=== PATIENT | female | born 1985 | race Caucasian/White ===

== ENCOUNTER 2017-09-01 23:48 | Inpatient (IN) | payer BC ==
[2017-09-02] MEDS ORDERED: Ondansetron 4 MG/2 ML SDV IVPUSH PRN (00:26)
[2017-09-02] MEDS ORDERED: Lidocaine 1% 50 ML MDV INJECT ONE (00:26)
[2017-09-02] MEDS ORDERED: Nalbuphine 20 MG/1 ML Amp IVPUSH PRN (00:26)
[2017-09-02] MEDS ORDERED: Sodium Chloride 0.9% 10 ML Syringe FLUSH PRN (00:26)
[2017-09-02] MEDS ORDERED: Oxytocin/Lactated Ringers 10 UNIT/1,000 ML BAG IV SCH (00:30)
[2017-09-02] MEDS: Lactated Ringers 1,000 ML IV SCH ×4 (02:00→04:34)
[2017-09-02] MEDS ORDERED: fentaNYL 100 MCG/2 ML SDV ONE (02:08)
--- NOTE | 2017-09-02 02:32 | PCM.PREANE ---
Preanesthetic Assessment - Anesthesia/Transfusion/Family Hx Anesthesia History: Prior Anesthesia Without Reaction Family History of Anesthesia Reaction: No Transfusion History: No Prior Transfusion(s) - Review of Systems General: No Symptoms Pulmonary: No Symptoms Cardiovascular: No Symptoms Gastrointestinal: No Symptoms Neurological: No Symptoms Other: Reports: None - Physical Assessment Pulse: 104 O2 Sat by Pulse Oximetry: 100 Respiratory Rate: 20 Blood Pressure: 111/47 Height: 5 ft 8 in Weight: 94.347 kg ASA Class: 2 Mental Status: Alert & Oriented x3 Airway Class: Mallampati = 1 Dentition: Reports: Normal Dentition Thyro-Mental Finger Breadths: 3 Mouth Opening Finger Breadths: 3 ROM/Head Extension: Full Lungs: Clear to Auscultation, Normal Respiratory Effort Cardiovascular: Regular Rate, Regular Rhythm - Lab Values: Laboratory Last Values WBC 10.92 K/mm3 (3.98-10.04) H 09/02/17 00:35 RBC 3.97 M/mm3 (3.98-5.22) L 09/02/17 00:35 Hgb 12.0 gm/L (11.2-15.7) 09/02/17 00:35 Hct 35.1 % (34.1-44.9) 09/02/17 00:35 MCV 88.4 fl (79.4-94.8) 09/02/17 00:35 MCH 30.2 pg (25.6-32.2) 09/02/17 00:35 MCHC 34.2 g/dl (32.2-35.5) 09/02/17 00:35 RDW Std Deviation 39.3 fL (36.4-46.3) 09/02/17 00:35 Plt Count 291 K/mm3 (182-369) 09/02/17 00:35 MPV 9.6 fl (9.4-12.3) 18 00:35 Blood Type O POSITIVE 09/02/17 00:35 Gel Antibody Screen Negative 09/02/17 00:35 - Allergies Allergies/Adverse Reactions: Allergies Allergy/AdvReac Type Severity Reaction Status Date / Time amoxicillin Allergy Other Unverified 09/02/17 00:37 azithromycin [From Zithromax] Allergy Other Unverified 09/02/17 00:37 Sulfa (Sulfonamide Allergy Rash Unverified 09/02/17 00:37 Antibiotics) - Blood Blood Available: No - Acknowledgements Anesthesia Type Planned: Epidural Pt an Appropriate Candidate for the Planned Anesthesia: Yes Alternatives and Risks of Anesthesia Discussed w Pt/Guardian: Yes Pt/Guardian Understands and Agrees with Anesthesia Plan: Yes PreAnesthesia Questionnaire Cardiovascular History: Reports: Other (See Below) (murmur) Respiratory History: Reports: None Gastrointestinal History: Reports: None : 1 (39 weeks) Para: 0 - Past Surgical History HEENT Surgical History: Reports: Oral Surgery - History Comment History Comment: cholestryramine oral suspension qid - SUBSTANCE USE Smoking Status *Q: Never Smoker Tobacco Use Within Last Twelve Months: No Second Hand Smoke Exposure: No Days Per Week of Alcohol Use: 0 Number of Drinks Per Day: 0 Total Drinks Per Week: 0 Recreational Drug Use History: No - CURRENT (IN HOUSE) MEDS Current Meds: Current Medications Lactated Ringer's (Ringers, Lactated) 1,000 mls @ 100 mls/hr IV ASDIRECTED BECKY Oxytocin/Lactated Ringer's (Pitocin In Lr 10 Units/1,000 Ml) 10 unit in 1,000 mls @ 500 mls/hr IV .CONTINUOUS BECKY Nalbuphine HCl (Nubain) 10 mg IVPUSH Q2H PRN PRN Reason: Pain (moderate 4-6) Ondansetron HCl (Zofran) 4 mg IVPUSH Q4H PRN PRN Reason: Nausea/Vomiting Last Admin: 09/02/17 01:28 Dose: 4 mg Sodium Chloride (Saline Flush) 10 ml FLUSH ASDIRECTED PRN PRN Reason: Keep Vein Open Discontinued Medications Fentanyl (Sublimaze) Confirm Administered Dose 100 mcg .ROUTE .STK-MED ONE Stop: 09/02/17 02:09 Last Admin: 09/02/17 02:25 Dose: 100 mcg Lidocaine HCl (Xylocaine 1%) 20 ml INJECT ONETIME ONE Stop: 09/02/17 00:27
[2017-09-02] MEDS ORDERED: fentaNYL 100 MCG/2 ML SDV EPIDUR PRN (04:58)
[2017-09-02] MEDS ORDERED: diphenhydrAMINE 50 MG/ML SDV IVPUSH PRN (04:58)
[2017-09-02] MEDS ORDERED: ePHEDrine 50 MG/ML SDV IVPUSH PRN (04:58)
[2017-09-02] MEDS ORDERED: Bupivacaine/fentaNYL/NS 100 ML Bag EPIDUR SCH (05:00)
--- NOTE | 2017-09-02 08:14 | PCM.LDHP ---
L&D History of Present Illness - General Date of Service: 09/02/17 Admit Problem/Dx: Patient Status Order with Admit Dx/Problem 09/02/17 00:26 Patient Status [ADT] Routine Admission Diagnosis/Problem Admission Diagnosis/Problem Normal labor Source of Information: Patient History Limitations: Reports: No Limitations - History of Present Illness Introduction:: 31 y/o JEN 09/08/2017 EGA 39w1d. GBS negative. Presented to L&D tipple repairer hours of 09/02/17 at approximately 00 20 hours complaining of ruptured membranes at 2300 hrs. on 09/01/17. Patient admitted for labor and delivery blood type O-positive antibody screen negative initial hemoglobin and hematocrit 02/24/1712.8/36.9 platelets 298,000. Rubella immune serology nonreactive urine culture lactobacillus contaminants vaginal doug hepatitis B surface antigen negative HIV negative GC, a probe negative hemoglobin hematocrit on 06/16/1711.8/35.2 platelets 265,000 sugar 1 hour OB glucose screen 90 Pain Score: 10 Improves with: Reports: None Worsens with: Reports: None Associated Symptoms: Reports: N - Related Data Allergies/Adverse Reactions: Allergies Allergy/AdvReac Type Severity Reaction Status Date / Time amoxicillin Allergy Other Verified 09/02/17 05:04 azithromycin [From Zithromax] Allergy Other Verified 09/02/17 05:04 Sulfa (Sulfonamide Allergy Rash Verified 09/02/17 05:04 Antibiotics) Home Medications: Home Meds Cholestyramine/Sucrose [Cholestyramine Packet] 4 gm PO Q6HR 09/02/17 [History] Past Medical History Cardiovascular History: Reports: Heart Murmur Respiratory History: Reports: None Gastrointestinal History: Reports: None [employer] History: Reports: Hematologic History: Reports: Anemia - Past Surgical History HEENT Surgical History: Reports: Oral Surgery - History Comment History Comment: cholestryramine oral suspension qid Social & Family History - Family History Family Medical History: Noncontributory - Tobacco Use Smoking Status *Q: Never Smoker Second Hand Smoke Exposure: No - Caffeine Use Caffeine Use: Reports: None - Alcohol Use Days Per Week of Alcohol Use: 0 Number of Drinks Per Day: 0 Total Drinks Per Week: 0 - Recreational Drug Use Recreational Drug Use: No H&P Review of Systems - Review of Systems: Review Of Systems: See Below General: Reports: No Symptoms HEENT: Reports: No Symptoms Pulmonary: Reports: No Symptoms Cardiovascular: Reports: No Symptoms Gastrointestinal: Reports: No Symptoms Genitourinary: Reports: No Symptoms Musculoskeletal: Reports: No Symptoms Skin: Reports: No Symptoms Psychiatric: Reports: No Symptoms Neurological: Reports: No Symptoms Hematologic/Lymphatic: Reports: No Symptoms Immunologic: Reports: No Symptoms L&D Exam - Exam Exam: See Below - Vital Signs Vital Signs: Last Vital Signs Temp 97.2 F 09/02/17 05:10 Pulse 115 H 09/02/17 06:00 Resp 18 09/02/17 05:10 BP 120/69 09/02/17 06:00 Pulse Ox 98 09/02/17 05:10 Weight: 208 lb 1.6 oz - OB Specific Fundal Height In cm: 39 Contraction Duration (sec): 60 Contraction Frequency (min): 3-4 Contraction Intensity: Moderate Movement: Active Heart Tones: Present Heart Tones per Min: 145 Heart Rate (FHR) Variability: Moderate (6-25 bmp) Presentation: Vertex - Avila Score Avila Score Cervix Position: Posterior Avila Score Consistency: Soft Avila Score Effacement: >80% Avila Score Dilation: 3-4 cm Avila Score 's Station: -2 Avila Score Total: 8 - Exam General: Alert, Oriented HEENT: Conjunctiva Clear, Mucosa Moist & Priddy, Posterior Pharynx Clear, TMs Clear, PERRLA Neck: Supple, Trachea Midline Lungs: Clear to Auscultation, Normal Respiratory Effort Cardiovascular: Regular Rate, Regular Rhythm GI/Abdominal Exam: Normal Bowel Sounds, Soft, Non-Tender Genitourinary: Normal external exam, Normal bimanual exam, Normal speculum exam Back Exam: Normal Inspection, Full Range of Motion Extremities: Normal Inspection, Normal Range of Motion, Non-Tender, No Pedal Edema, Normal Capillary Refill Skin: Warm, Dry, Intact Psychiatric: Alert, Normal Affect, Normal Mood - Patient Data Lab Results Last 24 hrs: Laboratory Results - last 24 hr 09/02/17 09/02/17 Range/Units 00:35 00:35 WBC 10.92 H (3.98-10.04) K/mm3 RBC 3.97 L (3.98-5.22) M/mm3 Hgb 12.0 (11.2-15.7) gm/L Hct 35.1 (34.1-44.9) % MCV 88.4 (79.4-94.8) fl MCH 30.2 (25.6-32.2) pg MCHC 34.2 (32.2-35.5) g/dl RDW Std Deviation 39.3 (36.4-46.3) fL Plt Count 291 (182-369) K/mm3 MPV 9.6 (9.4-12.3) fl Blood Type O POSITIVE Gel Antibody Screen Negative Result Diagrams: 09/02/17 00:35 - Problem List (1) 39 weeks gestation of SNOMED Code(s): 98600413 ICD Code: Z3A.39 - 39 WEEKS GESTATION OF Status: Acute Current Visit: Yes Problem List Initiated/Reviewed/Updated: No Orders Last 24hrs: Active Orders 24 hr Category Date Time Status Patient Status [ADT] Routine ADT 09/02/17 00:26 Active Activity as Tolerated [RC] PFP Care 09/02/17 00:26 Active Communication Order [RC] ASDIRECTED Care 09/02/17 00:26 Active [place]ney Catheter Insertion [Insert Urinary Catheter] [OM. Care 09/02/17 05:15 Ordered PC] Q24H Notify Provider [RC] ASDIRECTED Care 09/02/17 04:58 Active Notify Provider [RC] PFP Care 09/02/17 00:26 Active Notify Provider [RC] PRN Care 09/02/17 00:26 Active Peripheral IV Care [RC] Q2HR Care 09/02/17 00:26 Active Vital Signs [RC] 04,12,20 Care 09/02/17 00:26 Active Regular Diet [DIET] Diet 09/02/17 Breakfast Active Bupivacaine/fentaNYL/NS [fentaNYL/Bupivacaine/NS 2 MCG- Med 09/02/17 05:00 Active 0.125% 100 ML] 100 ml EPIDUR ASDIRECTED Lactated Ringers [Ringers, Lactated] 1,000 ml Med 09/02/17 00:30 Active IV ASDIRECTED Nalbuphine [Nubain] Med 09/02/17 00:26 Active 10 mg IVPUSH Q2H PRN Ondansetron [Zofran] Med 09/02/17 00:26 Active 4 mg IVPUSH Q4H PRN Oxytocin/Lactated Ringers [Pitocin in LR 10 Units/1,000 Med 09/02/17 00:30 Active ML] 10 unit in 1,000 ml IV .CONTINUOUS Sodium Chloride 0.9% [Saline Flush] Med 09/02/17 00:26 Active 10 ml FLUSH ASDIRECTED PRN diphenhydrAMINE [Benadryl] Med 09/02/17 04:58 Active 25 mg IVPUSH Q6H PRN ePHEDrine [ePHEDrine Sulfate] Med 09/02/17 04:58 Active 5 mg IVPUSH ASDIRECTED PRN fentaNYL [Sublimaze] Med 09/02/17 04:58 Active 100 mcg EPIDUR Q3H PRN Electronic Heart Tones Ext w TOCO [WOMSER] Oth 09/02/17 00:26 Ordered Routine Electronic Heart Tones Internal [WOMSER] Per Unit Oth 09/02/17 00:26 Ordered Routine Peripheral IV Insertion Adult [OM.PC] Routine Oth 09/02/17 00:26 Ordered Resuscitation Status Routine Resus Stat 09/02/17 00:26 Ordered Medication Orders Diphenhydramine HCl (Benadryl) 25 mg IVPUSH Q6H PRN PRN Reason: pruritis Ephedrine Sulfate (Ephedrine Sulfate) 5 mg IVPUSH ASDIRECTED PRN PRN Reason: Hypotension Fentanyl (Sublimaze) 100 mcg EPIDUR Q3H PRN PRN Reason: Pain Fentanyl/Bupivacaine HCl (Fentanyl/Bupivacaine/Ns 2 Mcg-0.125% 100 Ml) 100 ml EPIDUR ASDIRECTED [facility] Lactated Ringer's (Ringers, Lactated) 1,000 mls @ 100 mls/hr IV ASDIRECTED [facility] Last Admin: 09/02/17 04:34 Dose: 125 mls/hr Infusion: 09/02/17 04:17 Dose: 999 mls/hr Admin: 09/02/17 03:16 Dose: 999 mls/hr Infusion: 09/02/17 03:16 Dose: 999 mls/hr Admin: 09/02/17 02:35 Dose: 999 mls/hr Infusion: 09/02/17 02:35 Dose: 999 mls/hr Admin: 09/02/17 02:00 Dose: 999 mls/hr Oxytocin/Lactated Ringer's (Pitocin In Lr 10 Units/1,000 Ml) 10 unit in 1,000 mls @ 500 mls/hr IV .CONTINUOUS BECKY Nalbuphine HCl (Nubain) 10 mg IVPUSH Q2H PRN PRN Reason: Pain (moderate 4-6) Ondansetron HCl (Zofran) 4 mg IVPUSH Q4H PRN PRN Reason: Nausea/Vomiting Last Admin: 09/02/17 01:28 Dose: 4 mg Sodium Chloride (Saline Flush) 10 ml FLUSH ASDIRECTED PRN PRN Reason: Keep Vein Open Assessment/Plan Comment:: Med for delivery.
[2017-09-02] MEDS ORDERED: Lidocaine 1% 50 ML MDV ONE (08:46)
--- NOTE | 2017-09-02 09:09 | PCM.DEL ---
L & D Note - General Info Date of Service: 09/02/17 Mother's Due Date: 09/08/17 - Delivery Note Labor: Spontaneous Delivery Outcome: Livebirth (male liveborn 83709/02/2015 XIANG nuchal cord x1, light meconium stained amniotic fluid. APGARs 8/9. Weight 3240 g/7#2.3 oz) Delivery Method: Spontaneous Vaginal Delivery-Single Infant Delivery Mode: Spontaneous Presentation: Left Occiput Anterior (XIANG) Nuchal Cord: Present, Reduced (over shoulder) Prep: Povidone-Iodine (Betadine Anesthesia Type: Local (local for episiotomy repair ), Epidural Anesthetic: Lidocaine (Xylocaine) 1% Plain Local Anesthetic Volume: 5cc Amniotic Fluid Description: Meconium Stained (light meconium staining) Episiotomy Type: Midline Laceration: None Placenta: Intact, Spontaneous Cord: 3 Vessels Estimated Blood Loss: 250 Resuscitation Needed: No : Suctioned, Bulb Syringe, Stimulated, Warmed, [place] Used, Warmer Used (Dr Arce at delivery) Provider: Contreras Quintana Score 1 min: 8 Score 5 min: 9 - Patient Data Vitals - Most Recent: Last Vital Signs Temp 97.2 F 09/02/17 05:10 Pulse 115 H 09/02/17 06:00 Resp 18 09/02/17 05:10 BP 120/69 09/02/17 06:00 Pulse Ox 98 09/02/17 05:10 Weight - Most Recent: 208 lb 1.6 oz Lab Results Last 24 Hours: Laboratory Results - last 24 hr 09/02/17 09/02/17 Range/Units 00:35 00:35 WBC 10.92 H (3.98-10.04) K/mm3 RBC 3.97 L (3.98-5.22) M/mm3 Hgb 12.0 (11.2-15.7) gm/L Hct 35.1 (34.1-44.9) % MCV 88.4 (79.4-94.8) fl MCH 30.2 (25.6-32.2) pg MCHC 34.2 (32.2-35.5) g/dl RDW Std Deviation 39.3 (36.4-46.3) fL Plt Count 291 (182-369) K/mm3 MPV 9.6 (9.4-12.3) fl Blood Type O POSITIVE Gel Antibody Screen Negative Med Orders - Current: Current Medications Diphenhydramine HCl (Benadryl) 25 mg IVPUSH Q6H PRN PRN Reason: pruritis Ephedrine Sulfate (Ephedrine Sulfate) 5 mg IVPUSH ASDIRECTED PRN PRN Reason: Hypotension Fentanyl (Sublimaze) 100 mcg EPIDUR Q3H PRN PRN Reason: Pain Fentanyl/Bupivacaine HCl (Fentanyl/Bupivacaine/Ns 2 Mcg-0.125% 100 Ml) 100 ml EPIDUR ASDIRECTED BECKY Lactated Ringer's (Ringers, Lactated) 1,000 mls @ 100 mls/hr IV ASDIRECTED BECKY Last Admin: 09/02/17 04:34 Dose: 125 mls/hr Oxytocin/Lactated Ringer's (Pitocin In Lr 10 Units/1,000 Ml) 10 unit in 1,000 mls @ 500 mls/hr IV .CONTINUOUS BECKY Nalbuphine HCl (Nubain) 10 mg IVPUSH Q2H PRN PRN Reason: Pain (moderate 4-6) Ondansetron HCl (Zofran) 4 mg IVPUSH Q4H PRN PRN Reason: Nausea/Vomiting Last Admin: 09/02/17 01:28 Dose: 4 mg Sodium Chloride (Saline Flush) 10 ml FLUSH ASDIRECTED PRN PRN Reason: Keep Vein Open Discontinued Medications Fentanyl (Sublimaze) Confirm Administered Dose 100 mcg .ROUTE .STK-MED ONE Stop: 09/02/17 02:09 Last Admin: 09/02/17 02:25 Dose: 100 mcg Lidocaine HCl (Xylocaine 1%) 20 ml INJECT ONETIME ONE Stop: 09/02/17 00:27 Lidocaine HCl (Xylocaine 1%) Confirm Administered Dose 50 ml .ROUTE .STK-MED ONE Stop: 09/02/17 08:47 - Problem List & Annotations (1) 39 weeks gestation of SNOMED Code(s): 07278826 Code(s): Z3A.39 - 39 WEEKS GESTATION OF Status: Acute Current Visit: Yes (2) Nuchal cord without compression, delivered, current hospitalization SNOMED Code(s): 71569073 Code(s): O69.81X0 - LABOR AND DEL COMP BY CORD AROUND NECK, W/O COMPRSN, UNSP Status: Acute Current Visit: Yes (3) Meconium stained amniotic fluid, delivered, current hospitalization SNOMED Code(s): 685658280 Code(s): O77.0 - LABOR AND DELIVERY COMPLICATED BY MECONIUM IN AMNIOTIC FLUID Status: Acute Current Visit: Yes - Problem List Review Problem List Initiated/Reviewed/Updated: No - My Orders Last 24 Hours: My Active Orders 09/02/17 00:26 Patient Status [ADT] Routine Activity as Tolerated [RC] PFP Communication Order [RC] ASDIRECTED Notify Provider [RC] PFP Notify Provider [RC] PRN Peripheral IV Care [RC] Q2HR Vital Signs [RC] 04,12,20 Nalbuphine [Nubain] 10 mg IVPUSH Q2H PRN Ondansetron [Zofran] 4 mg IVPUSH Q4H PRN Sodium Chloride 0.9% [Saline Flush] 10 ml FLUSH ASDIRECTED PRN Electronic Heart Tones Ext w TOCO [WOMSER] Routine Electronic Heart Tones Internal [WOMSER] Per Unit Routine Peripheral IV Insertion Adult [OM.PC] Routine Resuscitation Status Routine 09/02/17 00:30 Lactated Ringers [Ringers, Lactated] 1,000 ml IV ASDIRECTED Oxytocin/Lactated Ringers [Pitocin in LR 10 Units/1,000 ML] 10 unit in 1,000 ml IV .CONTINUOUS 09/02/17 05:15 [place]ney Catheter Insertion [Insert Urinary Catheter] [OM.PC] Q24H 09/02/17 Breakfast Regular Diet [DIET] - Plan Plan:: Med for delivery.
[2017-09-02] MEDS ORDERED: Witch Hazel Medicated Pads 100/Jar TOP PRN (09:17)
[2017-09-02] MEDS ORDERED: Docusate Sodium 100 MG Cap PO PRN (09:17)
[2017-09-02] MEDS ORDERED: Benzocaine/Menthol 20%-0.5% Spray 56 GM Canister TOP PRN (09:17)
[2017-09-02] MEDS ORDERED: Simethicone 80 MG Tab.Chew PO PRN (09:17)
[2017-09-02] MEDS ORDERED: Lanolin 100% Cream 7 GM Tube TOP PRN (09:17)
[2017-09-02] MEDS ORDERED: Acetaminophen/oxyCODONE 325-5 MG Tab PO PRN (09:17)
[2017-09-02] MEDS: Ibuprofen 600 MG Tab PO PRN ×2 (10:26→17:30)
[2017-09-02] MEDS: Cholestyramine/Aspartame Powder 4 GM Packet PO SCH ×2 (12:00→19:18)
[2017-09-02] MEDS ORDERED: Bupivacaine 0.25% 10 ML SDV ONE (22:22)
[2017-09-02] MEDS ORDERED: ePHEDrine 50 MG/ML SDV ONE (22:22)
[2017-09-03] MEDS: Cholestyramine/Aspartame Powder 4 GM Packet PO SCH ×4 (02:37→19:54)
[2017-09-03] MEDS: Ibuprofen 600 MG Tab PO PRN ×2 (07:28→12:21)
--- NOTE | 2017-09-03 08:17 | PCM.PNPP ---
- General Info Date of Service: 09/03/17 Functional Status: Reports: Pain Controlled - Review of Systems General: Reports: No Symptoms HEENT: Reports: No Symptoms Pulmonary: Reports: No Symptoms Cardiovascular: Reports: No Symptoms Gastrointestinal: Reports: No Symptoms Genitourinary: Reports: No Symptoms Musculoskeletal: Reports: No Symptoms Skin: Reports: No Symptoms Neurological: Reports: No Symptoms Psychiatric: Reports: No Symptoms - General Info Date of Service: 09/03/17 - Patient Data Vital Signs - Most Recent: Last Vital Signs Temp 37.0 C 09/03/17 04:00 Pulse 99 09/03/17 04:00 Resp 18 09/03/17 04:00 BP 105/58 L 09/03/17 04:00 Pulse Ox 98 09/03/17 04:00 Weight - Most Recent: 94.393 kg Lab Results - Last 24 Hours: Laboratory Results - last 24 hr 09/03/17 Range/Units 06:30 WBC 11.18 H (3.98-10.04) K/mm3 RBC 3.20 L (3.98-5.22) M/mm3 Hgb 9.6 L (11.2-15.7) gm/L Hct 29.1 L (34.1-44.9) % MCV 90.9 (79.4-94.8) fl MCH 30.0 (25.6-32.2) pg MCHC 33.0 (32.2-35.5) g/dl RDW Std Deviation 41.1 (36.4-46.3) fL Plt Count 210 (182-369) K/mm3 MPV 9.4 (9.4-12.3) fl Neut % (Auto) 66.1 (34.0-71.1) % Lymph % (Auto) 25.0 (19.3-51.7) % [place] % (Auto) 7.3 (4.7-12.5) % Eos % (Auto) 1.2 (0.7-5.8) Baso % (Auto) 0.2 (0.1-1.2) % Neut # (Auto) 7.39 H (1.56-6.13) K/mm3 Lymph # (Auto) 2.80 (1.18-3.74) K/mm3 [place] # (Auto) 0.82 H (0.24-0.36) K/mm3 Eos # (Auto) 0.13 (0.04-0.36) K/mm3 Baso # (Auto) 0.02 (0.01-0.08) K/mm3 Med Orders - Current: Current Medications Acetaminophen (Tylenol) 650 mg PO Q4H PRN PRN Reason: mild pain or fever Benzocaine/Menthol (Dermoplast Pain Relief [place]) 0 gm TOP ASDIRECTED PRN PRN Reason: Perineal Comfort Measure Last Admin: 09/02/17 10:25 Dose: 1 spray Cholestyramine Resin (Prevalite Packet) 4 gm PO Q6H [facility] Last Admin: 09/03/17 06:46 Dose: Not Given Docusate Sodium (Colace) 100 mg PO BID PRN PRN Reason: Constipation Emollient Ointment (Lansinoh Hpa) 0 gm TOP ASDIRECTED PRN PRN Reason: Sore Nipples Ibuprofen (Motrin) 600 mg PO Q4H PRN PRN Reason: Mild pain or fever Last Admin: 09/03/17 07:28 Dose: 600 mg Oxycodone/Acetaminophen (Percocet 325-5 Mg) 2 tab PO Q4H PRN PRN Reason: Pain (moderate 4-6) Simethicone (Simethicone) 80 mg PO Q4H PRN PRN Reason: Gas Witch Sole (Tucks) 1 pad TOP ASDIRECTED PRN PRN Reason: Hemorrhoid pain Last Admin: 09/02/17 10:25 Dose: 1 pad Discontinued Medications Diphenhydramine HCl (Benadryl) 25 mg IVPUSH Q6H PRN PRN Reason: pruritis Ephedrine Sulfate (Ephedrine Sulfate) 5 mg IVPUSH ASDIRECTED PRN PRN Reason: Hypotension Fentanyl (Sublimaze) Confirm Administered Dose 100 mcg .ROUTE .STK-MED ONE Stop: 09/02/17 02:09 Last Admin: 09/02/17 02:25 Dose: 100 mcg Fentanyl (Sublimaze) 100 mcg EPIDUR Q3H PRN PRN Reason: Pain Fentanyl/Bupivacaine HCl (Fentanyl/Bupivacaine/Ns 2 Mcg-0.125% 100 Ml) 100 ml EPIDUR ASDIRECTED [facility] Last Admin: 09/02/17 02:30 Dose: 100 ml Lactated Ringer's (Ringers, Lactated) 1,000 mls @ 100 mls/hr IV ASDIRECTED BECKY Last Admin: 09/02/17 04:34 Dose: 125 mls/hr Oxytocin/Lactated Ringer's (Pitocin In Lr 10 Units/1,000 Ml) 10 unit in 1,000 mls @ 500 mls/hr IV .CONTINUOUS BECKY Last Admin: 09/02/17 09:10 Dose: 500 mls/hr Lidocaine HCl (Xylocaine 1%) 20 ml INJECT ONETIME ONE Stop: 09/02/17 00:27 Last Admin: 09/02/17 09:11 Dose: 5 ml Lidocaine HCl (Xylocaine 1%) Confirm Administered Dose 50 ml .ROUTE .STK-MED ONE Stop: 09/02/17 08:47 Last Admin: 09/02/17 10:28 Dose: Not Given Nalbuphine HCl (Nubain) 10 mg IVPUSH Q2H PRN PRN Reason: Pain (moderate 4-6) Ondansetron HCl (Zofran) 4 mg IVPUSH Q4H PRN PRN Reason: Nausea/Vomiting Last Admin: 09/02/17 01:28 Dose: 4 mg Sodium Chloride (Saline Flush) 10 ml FLUSH ASDIRECTED PRN PRN Reason: Keep Vein Open - Infant Interaction Infant Disposition, : at Bedside Support Person: - Recovery Exam Fundal Tone: Firm Fundal Level: At Umbilicus Fundal Placement: Midline Lochia Amount: Small Lochia Color: Rubra/Red Episiotomy/Laceration: Approximated Bladder Status: Voiding Urinary Elimination: Voided - Exam General: Alert, Oriented HEENT: Pupils Equal Neck: Supple Lungs: Clear to Auscultation, Normal Respiratory Effort Cardiovascular: Regular Rate, Regular Rhythm GI/Abdominal Exam: Normal Bowel Sounds, Soft, Non-Tender, No Organomegaly, No Distention, No Abnormal Bruit, No Mass, Pelvis Stable Extremities: Normal Inspection, Normal Range of Motion, Non-Tender, No Pedal Edema, Normal Capillary Refill Wound/Incisions: Healing Well Neurological: No New Focal Deficit Psy/Mental Status: Alert, Normal Affect, Normal Mood - Problem List Review Problem List Initiated/Reviewed/Updated: Yes - Assessment Assessment:: PPD1 Doing well - Plan Plan:: Probable discharge tomorrow
[2017-09-03] MEDS: Acetaminophen 325 MG Tab PO PRN ×3 (08:52→20:31)
[2017-09-04] MEDS: Cholestyramine/Aspartame Powder 4 GM Packet PO SCH ×3 (02:58→12:47)
--- NOTE | 2017-09-04 07:47 | PCM.DCSUM1 ---
Discharge Summary - Discharge Data Discharge Date: 09/04/17 Discharge Disposition: Home, Self-Care 01 Condition: Good - Patient Instructions Diet: Usual Diet as Tolerated Activity: No Strenuous Activities Driving: May Drive Today Showering/Bathing: May Shower Notify Provider of: Fever, Increased Pain, Swelling and Redness, Drainage, Nausea and/or Vomiting - Discharge Plan Home Medications: Home Meds Cholestyramine/Sucrose [Cholestyramine Packet] 4 gm PO Q6HR 09/02/17 [History] Referrals: Sanjiv Corona MD [Physician] - (4 weeks) - Discharge Summary/Plan Comment DC Time >30 min.: No - General Info Date of Service: 09/04/17 Functional Status: Reports: Pain Controlled - Review of Systems General: Reports: No Symptoms HEENT: Reports: No Symptoms Pulmonary: Reports: No Symptoms Cardiovascular: Reports: No Symptoms Gastrointestinal: Reports: No Symptoms Genitourinary: Reports: No Symptoms Musculoskeletal: Reports: No Symptoms Skin: Reports: No Symptoms Neurological: Reports: No Symptoms Psychiatric: Reports: No Symptoms - Patient Data Vitals - Most Recent: Last Vital Signs Temp 36.7 C 09/03/17 20:28 Pulse 68 09/03/17 20:28 Resp 14 09/03/17 12:03 BP 106/63 09/03/17 20:28 Pulse Ox 100 09/03/17 20:28 Weight - Most Recent: 94.393 kg Med Orders - Current: Current Medications Acetaminophen (Tylenol) 650 mg PO Q4H PRN PRN Reason: mild pain or fever Last Admin: 09/03/17 20:31 Dose: 650 mg Benzocaine/Menthol (Dermoplast Pain Relief [place]) 0 gm TOP ASDIRECTED PRN PRN Reason: Perineal Comfort Measure Last Admin: 09/02/17 10:25 Dose: 1 spray Cholestyramine Resin (Prevalite Packet) 4 gm PO Q6H BECKY Last Admin: 09/04/17 06:56 Dose: Not Given Docusate Sodium (Colace) 100 mg PO BID PRN PRN Reason: Constipation Emollient Ointment (Lansinoh Hpa) 0 gm TOP ASDIRECTED PRN PRN Reason: Sore Nipples Ibuprofen (Motrin) 600 mg PO Q4H PRN PRN Reason: Mild pain or fever Last Admin: 09/03/17 12:21 Dose: 600 mg Oxycodone/Acetaminophen (Percocet 325-5 Mg) 2 tab PO Q4H PRN PRN Reason: Pain (moderate 4-6) Simethicone (Simethicone) 80 mg PO Q4H PRN PRN Reason: Gas Witch Sole (Tucks) 1 pad TOP ASDIRECTED PRN PRN Reason: Hemorrhoid pain Last Admin: 09/02/17 10:25 Dose: 1 pad Discontinued Medications Diphenhydramine HCl (Benadryl) 25 mg IVPUSH Q6H PRN PRN Reason: pruritis Ephedrine Sulfate (Ephedrine Sulfate) 5 mg IVPUSH ASDIRECTED PRN PRN Reason: Hypotension Fentanyl (Sublimaze) Confirm Administered Dose 100 mcg .ROUTE .[employer] ONE Stop: 09/02/17 02:09 Last Admin: 09/02/17 02:25 Dose: 100 mcg Fentanyl (Sublimaze) 100 mcg EPIDUR Q3H PRN PRN Reason: Pain Fentanyl/Bupivacaine HCl (Fentanyl/Bupivacaine/Ns 2 Mcg-0.125% 100 Ml) 100 ml EPIDUR ASDIRECTED [facility] Last Admin: 09/02/17 02:30 Dose: 100 ml Lactated Ringer's (Ringers, Lactated) 1,000 mls @ 100 mls/hr IV ASDIRECTED [facility] Last Admin: 09/02/17 04:34 Dose: 125 mls/hr Oxytocin/Lactated Ringer's (Pitocin In Lr 10 Units/1,000 Ml) 10 unit in 1,000 mls @ 500 mls/hr IV .CONTINUOUS [facility] Last Admin: 09/02/17 09:10 Dose: 500 mls/hr Lidocaine HCl (Xylocaine 1%) 20 ml INJECT ONETIME ONE Stop: 09/02/17 00:27 Last Admin: 09/02/17 09:11 Dose: 5 ml Lidocaine HCl (Xylocaine 1%) Confirm Administered Dose 50 ml .ROUTE .[employer] ONE Stop: 09/02/17 08:47 Last Admin: 09/02/17 10:28 Dose: Not Given Nalbuphine HCl (Nubain) 10 mg IVPUSH Q2H PRN PRN Reason: Pain (moderate 4-6) Ondansetron HCl (Zofran) 4 mg IVPUSH Q4H PRN PRN Reason: Nausea/Vomiting Last Admin: 09/02/17 01:28 Dose: 4 mg Sodium Chloride (Saline Flush) 10 ml FLUSH ASDIRECTED PRN PRN Reason: Keep Vein Open - Exam General: Reports: Alert, Oriented HEENT: Reports: Pupils Equal, Pupils Reactive, EOMI, Mucous Membr. Moist/[place] Neck: Reports: Supple Lungs: Reports: Clear to Auscultation, Normal Respiratory Effort Cardiovascular: Reports: Regular Rate, Regular Rhythm GI/Abdominal Exam: Normal Bowel Sounds, Soft, Non-Tender, No Organomegaly, No Distention, No Abnormal Bruit, No Mass, Pelvis Stable Rectal (Female) Exam: Normal Exam, Normal Rectal Tone Back Exam: Reports: Normal Inspection, Full Range of Motion Extremities: Normal Inspection, Normal Range of Motion, Non-Tender, No Pedal Edema, Normal Capillary Refill Skin: Reports: Warm, Dry, Intact Wound/Incisions: Reports: Healing Well Neurological: Reports: No New Focal Deficit Psy/Mental Status: Reports: Alert, Normal Affect, Normal Mood *Q Meaningful Use (DIS) - VTE *Q VTE Criteria *Q: - Stroke *Q Stroke Criteria *Q: - AMI *Q AMI Criteria *Q:
[2017-09-04] MEDS: Acetaminophen 325 MG Tab PO PRN (07:54)
== END 2017-09-04 12:15 | disposition home or self-care (01) | DRG 560 ==
LOC: JD.OBCHECK 23:48 → JD.OB 23:48 → JD.OBCHECK 09-02 00:25 → JD.OB 09-02 00:26 → OBSVTOIN 09-02 08:38
PROVIDERS: ADMIT Obstetrics & Gynecology; ATTEND Obstetrics & Gynecology
PROC: 10E0XZZ Delivery of Products of Conception, External Approach (ICD-10-PCS; principal; 2017-09-02)
PROC: 00HU33Z Insertion of Infusion Device into Spinal Canal, Percutaneous Approach (ICD-10-PCS; 2017-09-02)
PROC: 3E0R3BZ Introduction of Anesthetic Agent into Spinal Canal, Percutaneous Approach (ICD-10-PCS; 2017-09-02)
DX: O42.02 Full-term premature rupture of membranes, onset of labor within 24 hours of rupture (principal); O77.0 Labor and delivery complicated by meconium in amniotic fluid; O69.81X0 Labor and delivery complicated by cord around neck, without compression, not applicable or unspecified; Z3A.39 39 weeks gestation of pregnancy; Z37.0 Single live birth; Z88.1 Allergy status to other antibiotic agents; Z88.2 Allergy status to sulfonamides
CPT/HCPCS: 36415; 51702; 59300; 59409; 85025; 85027; 86850; 86900; 86901; A9270-GY; J2405; J2590; J3010; J7120

== ENCOUNTER 2021-07-14 12:51 | Emergency (ER) | payer OTHER ==
[2021-07-14] MEDS ORDERED: Sodium Chloride 0.9% 10 ML Syringe FLUSH PRN (13:44)
[2021-07-14] MEDS ORDERED: Ondansetron 4 MG/2 ML SDV IVPUSH ONE (13:44)
[2021-07-14] MEDS ORDERED: Sodium Chloride 0.9% 1,000 ML IV SCH (13:45)
[2021-07-14 14:31] LABS: CORONAVIRUS COVID-19 NAA NEGATIVE (NEGATIVE)
--- NOTE | 2021-07-14 16:07 | EDM.PDOC ---
ED HPI GENERAL MEDICAL PROBLEM - General Chief Complaint: Abdominal Pain Stated Complaint: VOMITING Time Seen by Provider: 07/14/21 13:58 Source of Information: Reports: Patient History Limitations: Reports: No Limitations - History of Present Illness INITIAL COMMENTS - FREE TEXT/NARRATIVE: 35-year-old female presents the emergency department today with complaints of nausea, vomiting, diarrhea and abdominal pain that started 3 days ago. Patient states that her 3-year-old son recently had a 24-hour bout of nausea, vomiting and diarrhea however that resolved. Patient states then she developed similar symptoms. She denies any recent fever or chills. She states that 3 days ago she had diarrhea however that has resolved. Now she is unable to keep any food or fluids down other than small sips of Pedialyte or Gatorade. She states she does have health issues and does see a electronic coils supervisor, an software team leader, and a primary care provider however they have been unable to confirm any diagnosis. However she denies any recent surgeries or inflammatory issues with her bowels. Abdominal Pain Score (Numeric/FACES): 5 - Related Data Allergies Allergy/AdvReac Type Severity Reaction Status Date / Time amoxicillin Allergy Other Verified 07/14/21 13:35 azithromycin [From Zithromax] Allergy Other Verified 07/14/21 13:35 Sulfa (Sulfonamide Allergy Rash Verified 07/14/21 13:35 Antibiotics) Home Meds: Home Meds Cholestyramine/Sucrose [Cholestyramine Packet] 4 gm PO Q6HR 09/02/17 [History] Ondansetron [Zofran ODT] 4 mg PO Q6H PRN #12 tab.dis 07/14/21 [Rx] Past Medical History Cardiovascular History: Reports: Heart Murmur Respiratory History: Reports: None Gastrointestinal History: Reports: None 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: Hematologic History: Reports: Anemia - Infectious Disease History Infectious Disease History: Reports: Novel Coronavirus - Past Surgical History HEENT Surgical History: Reports: Oral Surgery - History Comment History Comment: cholestryramine oral suspension qid Social & Family History - Family History Family Medical History: No Pertinent Family History - Tobacco Use Tobacco Use Status *Q: Never Tobacco User Second Hand Smoke Exposure: No - Caffeine Use Caffeine Use: Reports: Coffee, Soda - Recreational Drug Use Recreational Drug Use: No ED ROS GENERAL - Review of Systems Review Of Systems: Comprehensive ROS is negative, except as noted in HPI. ED EXAM, GI/ABD - Physical Exam Exam: See Below Exam Limited By: No Limitations General Appearance: Alert, WD/WN, Mild Distress Ears: Normal External Exam, Hearing Grossly Normal Nose: Normal Inspection Throat/Mouth: Normal Inspection, Normal Lips, Normal Voice, No Airway Compromise Head: Atraumatic Neck: Normal Inspection, Supple Respiratory/Chest: No Respiratory Distress, Lungs Clear, Normal Breath Sounds, No Accessory Muscle Use, Chest Non-Tender Cardiovascular: Normal Peripheral Pulses, Regular Rate, Rhythm, No Edema, No Murmur GI/Abdominal Exam: Soft, No Distention, Tender (Right upper and lower quadrants), Abnormal Bowel Sounds (Hyperactive in all 4 quadrants) (Female) Exam: Deferred Rectal (Female) Exam: Deferred Back Exam: Normal Inspection Extremities: Normal Inspection Neurological: Alert, Oriented, Normal Cognition Psychiatric: Normal Affect, Normal Mood Skin Exam: Warm, Dry, Intact, Normal Color, No Rash Lymphatic: No Adenopathy Course - Vital Signs Text/Narrative:: As stated above, patient presents with nausea and vomiting that started 3 days ago. She did have diarrhea for 24 hours approximately 3 days ago however this has resolved. She denies any fever, chills, headache or sore throat. Physical exam is essentially unremarkable however she does have tenderness noted to right lower and upper quadrant with palpation. Patient states that IV fluids that she is currently receiving have seem to help significantly as well as Zofran. Nursing had placed these orders via standing orders. She states that abdominal cramping is significantly better. She states that nausea has also resolved. Will obtain lab studies. Last Recorded V/S: Last Vital Signs Temp 97.2 F 07/14/21 13:33 Pulse 98 07/14/21 13:33 Resp 20 07/14/21 13:33 BP 132/95 H 07/14/21 13:33 Pulse Ox 99 07/14/21 13:33 - Orders/Labs/Meds Orders: Active Orders 24 hr Category Date Time Status Communication Order [RC] ASDIRECTED Care 07/14/21 13:45 Active Communication Order [RC] ASDIRECTED Care 07/14/21 13:45 Active Communication Order [RC] ASDIRECTED Care 07/14/21 13:45 Active Communication Order [RC] ASDIRECTED Care 07/14/21 13:45 Active Orthostatic Vital Signs [RC] ASDIRECTED Care 07/14/21 13:45 Active Peripheral IV Care [RC] . DIRECTED Care 07/14/21 13:45 Active UA W/MICROSCOPIC [URIN] Stat Lab 07/14/21 13:44 Once Sodium Chloride 0.9% [Saline Flush] Med 07/14/21 13:44 Active 10 ml FLUSH ASDIRECTED PRN Peripheral IV Insertion Adult [OM.PC] Stat Oth 07/14/21 13:45 Ordered Medication Orders Sodium Chloride (Sodium Chloride 0.9% 10 Ml Syringe) 10 ml FLUSH ASDIRECTED PRN PRN Reason: Keep Vein Open Last Admin: 07/14/21 14:06 Dose: 10 ml Documented by: HERMMIC Labs: Laboratory Tests 07/14/21 07/14/21 07/14/21 Range/Units 13:38 13:52 13:52 WBC 5.64 (3.98-10.04) K/mm3 RBC 4.67 (3.98-5.22) M/mm3 Hgb 13.3 (11.2-15.7) gm/dl Hct 39.5 (34.1-44.9) % MCV 84.6 (79.4-94.8) fl MCH 28.5 (25.6-32.2) pg MCHC 33.7 (32.2-35.5) g/dl RDW Std Deviation 38.3 (36.4-46.3) fL Plt Count 365 (182-369) K/mm3 MPV 8.6 L (9.4-12.3) fl Neut % (Auto) 59.9 (34.0-71.1) % Lymph % (Auto) 26.8 (19.3-51.7) % [place] % (Auto) 9.8 (4.7-12.5) % Eos % (Auto) 3.0 (0.7-5.8) Baso % (Auto) 0.5 (0.1-1.2) % Neut # (Auto) 3.38 (1.56-6.13) K/mm3 Lymph # (Auto) 1.51 (1.18-3.74) K/mm3 [place] # (Auto) 0.55 H (0.24-0.36) K/mm3 Eos # (Auto) 0.17 (0.04-0.36) K/mm3 Baso # (Auto) 0.03 (0.01-0.08) K/mm3 Sodium 139 (136-145) mEq/L Potassium 3.5 (3.5-5.1) mEq/L Chloride 104 (98-107) mEq/L Carbon Dioxide 23 (21-32) mEq/L Anion Gap 15.5 H (5-15) BUN 11 (7-18) mg/dL Creatinine 0.8 (0.55-1.02) mg/dL Est Cr Clr Drug Dosing 100.90 mL/min Estimated GFR (MDRD) > 60 (>60) mL/min BUN/Creatinine Ratio 13.8 L (14-18) Glucose 96 (70-99) mg/dL Calcium 8.4 L (8.5-10.1) mg/dL Magnesium 2.0 (1.8-2.4) mg/dL Total Bilirubin 0.3 (0.2-1.0) mg/dL AST 27 (15-37) U/L ALT 28 (14-59) U/L Alkaline Phosphatase 57 (46-116) U/L C-Reactive Protein 1.6 H* (<1.0) mg/dL Total Protein 7.3 (6.4-8.2) g/dl Albumin 3.0 L (3.4-5.0) g/dl Globulin 4.3 gm/dL Albumin/Globulin Ratio 0.7 L (1-2) Lipase 52 L (73-393) U/L HCG, Quant < 1.0 mIU/mL Influenza Type A RNA Negative (NEGATIVE) Influenza Type B RNA Negative (NEGATIVE) SARS-CoV-2 RNA (ELVIS) Negative (NEGATIVE) Meds: Medications Generic Name Dose Route Start Last Admin Trade Name Freq PRN Reason Stop Dose Admin Sodium Chloride 10 ml 07/14/21 13:44 07/14/21 14:06 Sodium Chloride 0.9% 10 Ml Syringe FLUSH 10 ml ASDIRECTED PRN Administration Keep Vein Open Discontinued Medications Generic Name Dose Route Start Last Admin Trade Name Freq PRN Reason Stop Dose Admin Sodium Chloride 1,000 mls @ 999 mls/hr 07/14/21 13:45 07/14/21 14:06 Normal Saline IV 07/14/21 14:44 999 mls/hr Q1H BECKY Administration Ondansetron HCl 4 mg 07/14/21 13:44 07/14/21 14:06 Ondansetron 4 Mg/2 Ml Sdv IVPUSH 07/14/21 13:45 4 mg ONETIME ONE Administration - Re-Assessments/Exams Free Text/Narrative Re-Assessment/Exam: 07/14/21 16:11 Hematology is essentially unremarkable. Chemistry reveals an anion gap 15.5, sodium 139, potassium 3.5, BUN 11, creatinine 0.8, glucose 96, magnesium 2.0, C-reactive protein 1.6, lipase 52, patient's quantitative hCG levels less than 1.0 Serology reveals influenza a and B are negative as well as Covid Discussed lab results with the patient. At this time she has received a liter of IV fluids and states she is feeling significantly better. I do not feel that imaging is warranted as I believe the patient has gastroenteritis. She will be discharged home with a prescription for Zofran and she is agreeable to this plan. Recommend she drink only clear liquids for the next 24 hours and then advance to a bland diet. Departure - Departure Time of Disposition: 16:12 Disposition: Home, Self-Care 01 Condition: Good Clinical Impression: Gastroenteritis - Discharge Information Prescriptions: Ondansetron [Zofran ODT] 4 mg PO Q6H PRN #12 tab.dis PRN Reason: Nausea/Vomiting Referrals: Meka Guaman MD [Primary Care Provider] - Additional Instructions: You were seen in the emergency department today with complaints of nausea, vomiting, abdominal cramping and diarrhea. You did receive a liter of IV fluids as well as IV Zofran and this did seem to help. Lab studies were completed and were essentially unremarkable. White blood cell count was normal and C-reactive protein level is 1.6. You are also very minimally dehydrated. Due to the fact that lab studies were normal and you are feeling much better after receiving IV fluids and Zofran I do not feel that imaging is warranted. You likely have gastroenteritis contracted from your child. I have sent prescription to [facility] for Zofran ODT. You only take this once every 6 hours as needed for nausea and vomiting. Allow the medication to dissolve under your tongue and wait approximately 30 minutes for her to take full effect prior to eating or drinking. Recommend clear liquids only for the next 24 hours and then advance to a bland diet thereafter. Should your condition worsen or change, do not hesitate returning the emergency department. Sepsis Event Note (ED) - Focused Exam Vital Signs: Vital Signs Temp Pulse Resp BP Pulse Ox 07/14/21 13:33 97.2 F 98 20 132/95 H 99
== END 2021-07-14 16:40 | disposition home or self-care (01) ==
LOC: JD.ED 12:51
DX: K52.9 Noninfective gastroenteritis and colitis, unspecified (principal); Z20.822 Contact with and (suspected) exposure to COVID-19; Z88.0 Allergy status to penicillin; Z88.1 Allergy status to other antibiotic agents; Z88.2 Allergy status to sulfonamides
CPT/HCPCS: 0240U; 36415; 80053; 83690; 83735; 84702; 85025; 86140; 96374; 99283; J2405; J7030

== ENCOUNTER 2023-10-13 12:45 | Inpatient (IN) | payer BC ==
[2023-10-13] MEDS ORDERED: Acetaminophen 325 MG Tab PO PRN (12:59)
[2023-10-13] MEDS ORDERED: Sodium Chloride 0.9% 10 ML Syringe FLUSH PRN (12:59)
[2023-10-13] MEDS ORDERED: Ondansetron 4 MG/2 ML SDV IVPUSH PRN (12:59)
[2023-10-13] MEDS ORDERED: Calcium Carbonate 500 MG Tab.Chew PO PRN (12:59)
[2023-10-13] MEDS ORDERED: Oxytocin/Lactated Ringers 30 UNIT/500 ML BAG IV SCH (13:00)
[2023-10-13] MEDS ORDERED: Lactated Ringers 1,000 ML IV SCH (13:00)
[2023-10-13] MEDS: ceFAZolin 2 GM in Sodium Chloride 0.9% 50 ML IV ONE (13:34)
[2023-10-13 14:07] LABS: BASOPHILS PERCENT AUTO 0.3 % (0.0-1.0); EOSINOPHILS ABSOLUTE AUTO 0.1 K/mm3 (0.0-0.4); HEMATOCRIT 31.6 % (37.0-47.0); HEMOGLOBIN 10.6 gm/dl (12.0-16.0); IMMATURE GRAN ABSOLUTE AUTO 0.05 K/mm3 (0.00-0.05); IMMATURE GRAN PERCENT AUTO 0.5 % (0.0-0.4); LYMPHOCYTES ABSOLUTE AUTO 1.9 K/mm3 (1.0-4.8); LYMPHOCYTES PERCENT AUTO 17.2 % (24.0-44.0); MEAN CORPUSCULAR HEMOGLOBIN 29.4 pg (28.0-32.0); MEAN CORPUSCULAR HGB CONC 33.5 g/dl (32.0-36.0); MEAN CORPUSCULAR VOLUME 87.8 fl (83.0-99.0); MEAN PLATELET VOLUME 9.8 fl (9.4-12.3); MONOCYTES ABSOLUTE AUTO 0.5 K/mm3 (0.0-0.8); MONOCYTES PERCENT AUTO 4.9 % (0.0-8.0); NEUTROPHILS ABSOLUTE AUTO 8.3 K/mm3 (1.8-7.7); NEUTROPHILS PERCENT AUTO 76.1 % (41.0-71.0); PLATELET COUNT,PLT 283 K/mm3 (150-400); WHITE BLOOD CELL COUNT,WBC 10.83 K/mm3 (3.9-11.3)
[2023-10-13] MEDS: Nalbuphine HCl 10 MG/ 1ML Amp IVPUSH PRN (14:41)
[2023-10-13] MEDS: Oxytocin/Lactated Ringers 30 UNIT/500 ML BAG IV SCH (15:22)
[2023-10-13] MEDS: Lidocaine 1% 50 ML MDV INJECT PRN (15:30)
[2023-10-13] MEDS ORDERED: Docusate Sodium 100 MG Cap PO PRN (17:07)
[2023-10-13] MEDS: Witch Hazel Medicated Pads 40/Jar TOP PRN (18:24)
[2023-10-13] MEDS: Benzocaine/Menthol 20%-0.5% Spray 78 GM Cannister TOP PRN (18:24)
[2023-10-13] MEDS: Ibuprofen 600 MG Tab PO SCH (20:12)
[2023-10-13] MEDS ORDERED: DULoxetine 30 MG Cap PO SCH (21:00)
[2023-10-13] MEDS ORDERED: ceFAZolin 1 GM in Sodium Chloride 0.9% 50 ML IV SCH (21:30)
[2023-10-13] MEDS: DULOXETINE 30 MG PO SCH (21:51)
[2023-10-13] MEDS: DULOXETINE 60 MG PO SCH (21:51)
[2023-10-14 07:24] LABS: HEMATOCRIT 28.8 % (37.0-47.0); HEMOGLOBIN 9.7 gm/dl (12.0-16.0); MEAN CORPUSCULAR HEMOGLOBIN 30.1 pg (28.0-32.0); MEAN CORPUSCULAR HGB CONC 33.7 g/dl (32.0-36.0); MEAN CORPUSCULAR VOLUME 89.4 fl (83.0-99.0); MEAN PLATELET VOLUME 9.2 fl (9.4-12.3); PLATELET COUNT,PLT 221 K/mm3 (150-400); RED BLOOD CELL COUNT 3.22 M/mm3 (4.10-5.30); WHITE BLOOD CELL COUNT,WBC 11.12 K/mm3 (3.9-11.3)
[2023-10-14] MEDS: Prenatal Multivitamin with Calcium/Folic Acid/Iron Tab PO SCH (09:26)
== END 2023-10-15 13:30 | disposition home or self-care (01) | DRG 560 ==
LOC: JD.OBCHECK 12:45 → JD.OB 14:10 → OBSVTOIN 15:18 → JD.OB 15:18
PROVIDERS: ADMIT Family Medicine; ATTEND Family Medicine
PROC: 10E0XZZ Delivery of Products of Conception, External Approach (ICD-10-PCS; principal; 2023-10-13)
PROC: 0KQM0ZZ Repair Perineum Muscle, Open Approach (ICD-10-PCS; 2023-10-13)
DX: O99.824 Streptococcus B carrier state complicating childbirth (principal); O62.3 Precipitate labor; Z37.0 Single live birth; O99.02 Anemia complicating childbirth; O77.0 Labor and delivery complicated by meconium in amniotic fluid; O70.1 Second degree perineal laceration during delivery; O99.344 Other mental disorders complicating childbirth; F41.8 Other specified anxiety disorders; Z88.2 Allergy status to sulfonamides; Z86.16 Personal history of COVID-19; Z3A.39 39 weeks gestation of pregnancy; Z88.0 Allergy status to penicillin; Z91.09 Other allergy status, other than to drugs and biological substances; O99.892 Other specified diseases and conditions complicating childbirth; R07.81 Pleurodynia
CPT/HCPCS: 36415; 59025; 59409; 85025; 85027; 86592; 86850; 86900; 86901; A9270-GY; J0690; J2001; J2300; J3490; J7999